=== PATIENT | male | born 1965 | race African-American/Black ===

== ENCOUNTER 2018-05-05 05:39 | Day surgery (SDC) | payer OTHER ==
[~2018-05-05] VITALS: Ht 177.8 cm; Wt 93.9 kg
--- NOTE | ~2018-05-05 | OP ---
PATIENT NAME: NORI BHATT MEDICAL RECORD: [id number] :65 LOCATION:[facility] ADMISSION DATE: SURGEON: HARMEET ALEXANDER MD DATE OF OPERATION: 05/05/2018 SURGEON: Harmeet Alexander MD ANESTHESIA: General anesthesia by Lucy Alvarado CRNA DIAGNOSIS: Phimosis. PROCEDURE: Circumcision. FINDINGS: Phimosis with a tight constriction band of scarring. SPECIMENS: Foreskin. BLOOD LOSS: Minimal. CLINICAL HISTORY: This is a 53-year-old male, who is a intermediate inmate. He complains of progressively increasing phimosis with cracking of the skin. He wishes to have a circumcision done. He does not have diabetes mellitus. He is not allergic to any medications. He was given Ance[employer] transcription specialist to the OR. DESCRIPTION OF PROCEDURE: The patient was placed in prone position and given induction of general anesthesia. He was then shaved, prepped and draped. A dorsal penile nerve block was made at the base of the penis with 2% lidocaine without epinephrine. This was also carried around circumferentially at the base of the penis. The foreskin was then pulled back and the glans penis was prepped using iodine. The lines of incision were marked out. The mucosal foreskin was marked 5-mm proximal to the roth of the glans penis. On the cutaneous foreskin, there was a clear line of demarcation between the scarred area of phimosis and the regular skin. I made the incision at this line of demarcation. A 2-0 nylon suture was placed to the glans penis, was placed under traction to ensure that these incision lines would not result in tethering of the penis with erection. The incisions were then made using a #15 blade. The Metzenbaum scissors were used to dissect the dartos fascia and eventually the foreskin sample was sent to pathology in formalin. Cautery was used to stop any bleeding within the dartos layer. The skin was then reapproximated using simple interrupted 4-0 Vicryl. At the end of the procedure, a Kerlix dressing was lightly applied around the base of the penis. The patient will have the dressing removed in 2 days' time and he will be followed up by the intermediate doctor. TRANSINT:[id number] Voice Confirmation ID: [id number] DOCUMENT ID: [id number] HARMEET ALEXANDER MD at 1216 CC: [id number] DICTATION DATE: 05/05/18 1116 PRINTING EQUIPMENT MECHANIC APPRENTICE: 05/05/18 1210 REG [place] [id number] [place] [id number]
[2018-05-05] MEDS ORDERED: METOPROLOL-HCT1 EACH PO (06:16)
[2018-05-05] MEDS ORDERED: TRAMADOL HCL E100 M1 PO (06:17)
[2018-05-05] MEDS ORDERED: CLOTRIM ANTIFUN15 GM TOPICAL ×2 (06:18→06:21)
[2018-05-05] MEDS ORDERED: HYDROCHLOROTHIA25 MG PO (06:19)
[2018-05-05] MEDS ORDERED: ZOCOR40 MG PO (06:20)
[2018-05-05] MEDS ORDERED: FLOMAX0.4 MG PO (06:20)
[2018-05-05] MEDS ORDERED: METOPROLOL TART50 MG PO (06:20)
[2018-05-05 06:29] VITALS: BP 122/74; Ht 177.8 cm; Wt 93.9 kg
[2018-05-05 07:08] LABS: HEMATOCRIT 42.3 % (42.0-54.0); HEMOGLOBIN 14.7 g/dL (13.5-17.5); MCH 30.8 pg (26.0-34.0); MCHC 34.8 g/dL (31.0-37.0); MCV 88.5 fL (80.0-100.0); MEAN PLATELET VOLUME 10.1 fL (7.4-10.4); RBC 4.78 10x6/uL (4.20-6.10); RDW 12.8 % (11.5-14.5); WBC 5.6 10x3/uL (4.8-10.8)
== END 2018-05-05 13:20 ==
LOC: D.OPS 05:39
PROVIDERS: Urology
DX: N47.1 Phimosis (principal); Z01.812 Encounter for preprocedural laboratory examination